=== PATIENT | male | born 1945 | race Caucasian/White ===

== ENCOUNTER 2025-02-05 05:09 | Observation (INO) | payer OTHER ==
[2025-02-05 05:41] LABS: Absolute Basophils 0.1 K/uL (0-0.5); Absolute Eosinophils 0.3 K/uL (0-0.5); Absolute Lymphocytes (CBC) 1.1 K/uL (0.7-4.9); Absolute Monocytes 0.6 K/uL (0.1-1.3); Absolute Neutrophil 5.2 K/uL (1.8-8.0); Basophils % 1.1 % (0-1.3); Hematocrit 43.1 % (39.6-49.0); Hemoglobin 14.9 g/dL (13.6-17.9); Lymphocytes % 14.8 % (15.3-44.8); MCH 33.1 pg (27.0-35.0); MCHC 34.6 g/dL (32.0-36.0); MCV 95.7 fL (80-100); MPV 8.3 fL (7.6-11.3); Monocytes % 8.1 % (3.3-12.3); Nucleated Red Blood Cells % 0.2 % (0-0); Platelets 421 thou/uL (152-406); Red Cell Distribution Width 13.5 % (12.1-15.2)
[2025-02-05 05:48] LABS: PT Prothrombin Time 13.5 SECONDS (10-13.0); PTT, Activated Partial Thromb 26.1 SECONDS (27.2-37.4); Protime INR 1.19
[2025-02-05 06:23] LABS: Albumin/Globulin Ratio 0.6 (1.1-1.8); Anion Gap 10.9 mEq/L (5.0-15.0); Bilirubin Total 0.6 mg/dL (0.2-1.0); Potassium 2.9 mEq/L (3.5-5.1)
[2025-02-05 06:28] LABS: Influenza A Ag Negative; Influenza B Ag Negative; SARS-CoV-2 Antigen Rapid Res Negative (Negative)
[2025-02-05] MEDS ORDERED: NA CHLORIDE 0.9% 1,000 ML ONE (07:04)
--- NOTE | 2025-02-05 07:57 | RAD REPORT ---
EXAMINATION: ONE VIEW CHEST XR CLINICAL INDICATION: Male, 79 years old.,weakness TECHNIQUE: Frontal chest projection is submitted. Examination is limited by patient positioning and t echnique. COMPARISON: 12/22/2016 FINDINGS: Developing patchy left perihilar and retrocardiac opacification. No pneumothorax or sizable effusion . The heart is normal in size. Mediastinal contours are unremarkable. IMPRESSION: Developing left airspace opacities as above concerning for pneumonia.
--- NOTE | 2025-02-05 08:38 | ER ---
Nurse's Notes [facility] Name: Miguel Pollock Age: 79 yrs Sex: Male : 1945 Arrival Date: 02/05/2025 Time: 05:09 Bed 8 Private MD: Diagnosis: Pneumonia, unspecified organism;Hypotension, unspecified Presentation: 02/05 05:15 Chief complaint: Patient states: WEAKNESS FOR A WEAK, DIZZINESS, LOWER BACK PAIN, AND ha1 HEADACHE. 05:15 Coronavirus screen: Client denies travel out of the [place] in the last 14 days. Ebola ha1 Screen: No symptoms or risks identified at this time. Initial Sepsis Screen: Does the patient meet any 2 criteria? No. Patient's initial sepsis screen is negative. Does the patient have a suspected source of infection? No. Patient's initial sepsis screen is negative. Risk Assessment: Do you want to hurt yourself or someone else? Patient reports no desire to harm self or others. 05:15 Method Of Arrival: Ambulatory ha1 05:15 Acuity: ANA 3 ha1 Triage Assessment: 05:15 General: Appears uncomfortable, Behavior is calm, cooperative. Pain: Complains of pain ha1 in HEADACHE AND LOWER BACK PAIN. Neuro: Level of Consciousness is awake, alert, obeys commands, Oriented to person, place, time, situation. Cardiovascular: Capillary refill < 3 seconds Patient's skin is warm and dry. Respiratory: Airway is patent Respiratory effort is even, unlabored, Respiratory pattern is regular, symmetrical. GI: No signs and/or symptoms were reported involving the gastrointestinal system. Derm: Skin is normal. Musculoskeletal: Circulation, motion, and sensation intact. Range of motion:. Historical: - Allergies: 05:15 No Known Allergies; ha1 - Home Meds: 05:15 lisinopril 20 mg Oral tab 1 tab once daily [Active]; ha1 - PMHx: 05:15 GERD; Hypertension; SKIN CANCER (2023); ha1 - PSHx: 05:15 SKIN REMOVAL (2023); ha1 - Immunization history:: Adult Immunizations up to date. - Infectious Disease History:: Denies. - Social history:: Smoking status: unknown. Screenin:43 [facility] ED Fall Risk Assessment (Adult) History of falling in the last 3 months, cp4 including since admission No falls in past 3 months (0 pts) Confusion or Disorientation No (0 pts) Intoxicated or Sedated No (0 pts) Impaired Gait No (0 pts) Mobility Assist Device Used No (0 pt) Altered Elimination No (0 pt) Score/Fall Risk Level 0 - 2 = Low Risk. Abuse screen: Denies threats or abuse. Denies injuries from another. Nutritional screening: No deficits noted. Tuberculosis screening: No symptoms or risk factors identified. Assessment: 05:43 VAN Scoring: Arm Drift: Patients demonstrates NO arm weakness. Patient is VAN Negative. cp4 Visual Disturbance: No visual disturbance noted. Aphasia: No aphasia noted. Neglect: No neglect noted. Tereza Swallow Protocol Exclusion Criteria: Brief Cognitive Screen What is your name? Normal, Where are you right now? Normal, What year is it? Normal. Oral Mechanism Examination Facial Symmetry: Normal, Motion: Normal, Lip Closure: Normal, Oral Mechanism Result: Normal. 3 oz Water Swallow Challenge: Pt able to drink all water without stopping, coughing, choking or throat clearing: Yes Result: PASS MD Notified: Tate Estevez MD. TNKase (Tenecteplase) Screening: Not Applicable. General: Appears in no apparent distress. uncomfortable, Behavior is calm, cooperative, appropriate for age. Pain: Denies pain. Neuro: Level of Consciousness is awake, alert, obeys commands, Oriented to person, place, time, situation. Cardiovascular: Patient's skin is warm and dry. Rhythm is sinus rhythm. Respiratory: Airway is patent Respiratory effort is even, unlabored. GI: No signs and/or symptoms were reported involving the gastrointestinal system. : No signs and/or symptoms were reported regarding the genitourinary system. EENT: No signs and/or symptoms were reported regarding the EENT system. Derm: No signs and/or symptoms reported regarding the dermatologic system. Musculoskeletal: No signs and/or symptoms reported regarding the musculoskeletal system. 07:15 General: Appears in no apparent distress. comfortable, well groomed, well developed, kc6 Behavior is calm, cooperative, appropriate for age. Neuro: Level of Consciousness is awake, alert, obeys commands, Oriented to person, place, time, situation, Appropriate for age. Cardiovascular: Capillary refill < 3 seconds. Respiratory: Airway is patent Trachea midline Respiratory effort is even, unlabored, Respiratory pattern is regular, symmetrical. GI: No signs and/or symptoms were reported involving the gastrointestinal system. : No signs and/or symptoms were reported regarding the genitourinary system. EENT: No signs and/or symptoms were reported regarding the EENT system. Derm: No signs and/or symptoms reported regarding the dermatologic system. Skin is intact, is healthy with good turgor, Skin is pink, warm \T\ dry. Musculoskeletal: No signs and/or symptoms reported regarding the musculoskeletal system. Circulation, motion, and sensation intact. Range of motion: intact in all extremities. 08:31 Reassessment: Patient appears in no apparent distress at this time. No changes from kc6 previously documented assessment. Patient and/or family updated on plan of care and expected duration. Pain level reassessed. Patient is alert, oriented x 3, equal unlabored respirations, skin warm/dry/pink. 09:56 Reassessment: Patient appears in no apparent distress at this time. Patient is alert, bp oriented x 3, equal unlabored respirations, skin warm/dry/pink. 10:41 Reassessment: Patient appears in no apparent distress at this time. No changes from kc6 previously documented assessment. Patient and/or family updated on plan of care and expected duration. Pain level reassessed. Patient is alert, oriented x 3, equal unlabored respirations, skin warm/dry/pink. 11:10 Reassessment: REPORT FAXED FOR RM 407. bp Vital Signs: 05:15 BP 109 / 94; Pulse 70; Resp 18 S; Temp 97.9(T); Pulse Ox 98% on R/A; Weight 70.31 kg; ha1 Height 5 ft. 8 in. ; 06:39 BP 80 / 62; Pulse 70; Resp 16; Pulse Ox 96% ; jj7 06:59 BP 92 / 72; Pulse 74; Resp 18; Pulse Ox 98% ; cp4 08:30 BP 105 / 69; Pulse 68; Resp 16 S; Pulse Ox 100% on R/A; kc6 09:55 BP 97 / 71; Pulse 72; Resp 19; Pulse Ox 96% ; bp 10:41 BP 103 / 72; Pulse 70; Resp 16 S; Pulse Ox 96% on R/A; kc6 05:15 Body Mass Index 23.57 (70.31 kg, 172.72 cm) ha1 NIH Stroke Scale Scores: 05:43 NIHSS Score: 0 4 ED Course: 05:12 Patient arrived in ED. jj6 05:15 Inserted saline lock: 22 gauge in left antecubital area, using aseptic technique. Blood ha1 collected. Flushed with 10 mL NS. 05:24 Tate Estevez MD is Attending Physician. sp3 05:34 Ileana Arcos is Primary Nurse. cp4 05:34 Initial lab(s) drawn, by me, sent to lab. EKG done, by ED staff, reviewed by Tate Estevez MD. 05:37 Triage completed. ha1 05:40 First set of blood cultures drawn Second set of blood cultures drawn by me, COVID swab cp4 sent to lab. Flu and/or RSV swab sent to lab. 05:43 No provider procedures requiring assistance completed. cp4 05:43 Bed in low position. Call light in reach. Side rails up X2. cp4 06:18 Chest Single View XRAY In Process Unspecified. EDMS 07:05 Patient has correct armband on for positive identification. Bed in low position. Call kc6 light in reach. Side rails up X2. Report received from Yarelis Arcos RN. quality assurance monitor final on. Pulse ox on. NIBP on. Door closed. Noise minimized. Lights dimmed. Warm blanket given. Pillow given. Verbal reassurance given. 07:06 Patient maintains SpO2 saturation greater than 95% on room air. kc6 07:07 Arm band placed on. kc6 07:15 Attending Physician role handed off by Tate Estevez MD rn 07:15 Jeremy Gray MD is Attending Physician. rn 08:03 CT Head Brain wo Cont In Process Unspecified. EDMS 08:31 Urine collected: clean catch specimen, clear. kc6 08:37 Codey Gray MD is Hospitalizing Provider. rn 10:41 Patient admitted, IV remains in place. kc6 11:27 Provided Education on: NA. bp Administered Medications: 07:08 Drug: NS 0.9% IV 1000 ml IV at 1 bolus Per protocol; to be given as a bolus over 60 bp minutes Route: IV; Rate: 1 bolus; Site: left antecubital; 10:40 Follow up: Response: No adverse reaction; IV Status: Completed infusion; IV Intake: kc6 1000ml 08:52 Drug: Rocephin IV 1 grams IV at calculated rate once; Given slow IV push per pharmacy bp instructions Route: IV; Rate: calculated rate; Site: left antecubital; 10:40 Follow up: Response: No adverse reaction; IV Status: Completed infusion; IV Intake: [id number] 08:52 Drug: Zithromax IVPB 500 mg IVPB once over 1 hrs; mix in 250 mL NS Route: IVPB; Infused bp Over: 1 hrs; Site: left antecubital; 10:40 Follow up: Response: No adverse reaction; IV Status: Completed infusion; IV Intake: kc6 250ml Medication: 05:43 VIS not applicable for this client. cp4 Intake: 10:40 IV: 1000ml; Total: 1000ml. kc6 10:40 IV: 10ml; Total: 1010ml. kc6 10:40 IV: 250ml; Total: 1260ml. kc6 Outcome: 08:37 Decision to Hospitalize by Provider. rn 10:41 Admitted to ER Hold. Please see [facility] for further documentation. 6 10:41 Condition: good 10:41 Instructed on the need for admit, 12:18 Patient left the ED. bp NIH Stroke Scale - NIH Stroke Score Date: 02/05/2025 Time: 05:43 Total Score = 0 10. Dysarthria (speech clarity - read or repeat words) - 0(Normal) 11. Extinction and Inattention (visual/tactile/auditory/spatial/personal) - 0(No abnormality) 1a. Level of Consciousness (LOC) - 0(Alert) 1b. Level of Consciousness (LOC) (Month \T\ Age) - 0(Both) 1c. LOC Commands (Open \T\ Closes Eyes/Assembler Brazer) - 0(Both) 2. Best Gaze (Lateral Gaze Paresis) - 0(Normal) 3. Visual Field Loss - 0(No visual loss) 4. Facial Palsy - 0(Normal) 5a. Left Arm: Motor (10-second hold) - 0(No drift) 5b. Right Arm: Motor (10-second hold) - 0(No drift) 6a. Left Leg: Motor (5-second hold - always test supine) - 0(No drift) 6b. Right Leg: Motor (5-second hold - always test supine) - 0(No drift) 7. Limb Ataxia (finger/nose \T\ heel/tee - test with eyes open) - 0(Absent) 8. Sensory Loss (pinprick arms/legs/face) - 0(Normal) 9. Best Language: Aphasia (description/naming/reading) - 0(No aphasia) Initials: cp4 Signatures: Dispatcher [employer] EDJeremy Aldridge MD MD rn Peltier, Brian RN RN bp Tate Estevez MD MD sp3 Nicolasa Dixon jj6 Nandini Morrison RN RN ha1 Kelli Rios RN RN kc6 Chris Dixon RN RN jj7 Ileana Arcos cp4
--- NOTE | 2025-02-05 08:39 | EDPHYS ---
Physician Documentation [facility] Name: Miguel Pollock Age: 79 yrs Sex: Male : 1945 Arrival Date: 02/05/2025 Time: 05:09 Bed 8 Private MD: ED Physician Jeremy Gray HPI: 02/05 05:53 This 79 yrs old Male presents to ER via Ambulatory with complaints of Dizziness, sp3 Weakness, Flu Symptoms, Doesn't Feel Right. 05:53 79-year-old male with history of hypertension, prior skin cancer, GERD presents to the 3 ED with a 1 week history of generalized weakness, subjective fever, chills, sweats, loss of taste, and "not feeling right". She denies any chest pain, shortness of breath, known sick contacts, travel history, prolonged immobilization, abdominal pain, vomiting or diarrhea, or any other signs or symptoms on ROS at this time.. Historical: - Allergies: 05:15 No Known Allergies; ha1 - Home Meds: 05:15 lisinopril 20 mg Oral tab 1 tab once daily [Active]; ha1 - PMHx: 05:15 GERD; Hypertension; SKIN CANCER (2023); ha1 - PSHx: 05:15 SKIN REMOVAL (2023); ha1 - Immunization history:: Adult Immunizations up to date. - Infectious Disease History:: Denies. - Social history:: Smoking status: unknown. ROS: 05:57 Eyes: Negative for injury, pain, redness, and discharge, Neck: Negative for injury, sp3 pain, and swelling, Cardiovascular: Negative for chest pain, palpitations, and edema, Respiratory: Negative for shortness of breath, cough, wheezing, and pleuritic chest pain, Abdomen/GI: Negative for abdominal pain, nausea, vomiting, diarrhea, and constipation, Back: Negative for injury and pain, MS/Extremity: Negative for injury and deformity, Skin: Negative for injury, rash, and discoloration, Neuro: Negative for headache, weakness, numbness, tingling, and seizure, Psych: Negative for depression, anxiety, suicide ideation, homicidal ideation, and hallucinations, Allergy/Immunology: Negative for hives, rash, and allergies, 05:57 All other systems are negative, Exam: 05:58 Constitutional: This is a well developed, well nourished patient who is awake, alert, sp3 and in no acute distress. Head/Face: Normocephalic, atraumatic. Eyes: Pupils equal round and reactive to light, extra-ocular motions intact. Lids and lashes normal. Conjunctiva and sclera are non-icteric and not injected. Cornea within normal limits. Periorbital areas with no swelling, redness, or edema. ENT: Nares patent. No nasal discharge, no septal abnormalities noted. External auditory canals are clear. Oropharynx with no redness, swelling, or masses, exudates, or evidence of obstruction, uvula midline. Mucous membranes moist. Neck: Trachea midline, no thyromegaly or masses palpated, and no cervical lymphadenopathy. Supple, full range of motion without nuchal rigidity, or vertebral point tenderness. No Meningismus. Chest/axilla: Normal chest wall appearance and motion. Nontender with no deformity. No lesions are appreciated. Cardiovascular: Regular rate and rhythm with a normal S1 and S2. No gallops, murmurs, or rubs. Normal PMI, no JVD. No pulse deficits. Respiratory: Lungs have equal breath sounds bilaterally, clear to auscultation and percussion. No rales, rhonchi or wheezes noted. No increased work of breathing, no retractions or nasal flaring. Abdomen/GI: Soft, non-tender, with normal bowel sounds. No distension or tympany. No guarding or rebound. No evidence of tenderness throughout. Back: No spinal tenderness. No costovertebral tenderness. Full range of motion. Skin: Warm, dry with normal turgor. Normal color with no rashes, no lesions, and no evidence of cellulitis. MS/ Extremity: Pulses equal, no cyanosis. Neurovascular intact. Full, normal range of motion. Neuro: Awake and alert, GCS 15, oriented to person, place, time, and situation. Cranial nerves II-XII grossly intact. Motor strength 5/5 in all extremities. Sensory grossly intact. Cerebellar exam normal. Normal gait. Psych: Awake, alert, with orientation to person, place and time. Behavior, mood, and affect are within normal limits. 05:58 Abdomen/GI: 06:01 ECG was reviewed by the Attending Physician. EKG demonstrates normal sinus rhythm at 75 sp3 bpm with normal intervals, normal QRS, normal axis, normal ST/T-segment's without evidence of acute ischemia. Vital Signs: 05:15 BP 109 / 94; Pulse 70; Resp 18 S; Temp 97.9(T); Pulse Ox 98% on R/A; Weight 70.31 kg; ha1 Height 5 ft. 8 in. ; 06:39 BP 80 / 62; Pulse 70; Resp 16; Pulse Ox 96% ; jj7 06:59 BP 92 / 72; Pulse 74; Resp 18; Pulse Ox 98% ; cp4 08:30 BP 105 / 69; Pulse 68; Resp 16 S; Pulse Ox 100% on R/A; kc6 09:55 BP 97 / 71; Pulse 72; Resp 19; Pulse Ox 96% ; bp 10:41 BP 103 / 72; Pulse 70; Resp 16 S; Pulse Ox 96% on R/A; kc6 05:15 Body Mass Index 23.57 (70.31 kg, 172.72 cm) ha1 NIH Stroke Scale Scores: 05:43 NIHSS Score: 0 cp4 MDM: 05:24 Medical Screening Exam initiated sp3 05:59 Data reviewed: vital signs, nurses notes, old medical records, lab test result(s), EKG, sp3 radiologic studies. ED course: 79-year-old male with PMH above with generalized weakness and vague symptoms. Differential diagnosis includes viral illness, COVID-19, influenza, pneumonia, bronchitis, electrolyte abnormality, UTI, among others. I am not highly suspicious of acute coronary syndrome, PE, sepsis, shock or any other critical process at this time. Workup will include EKG, chest x-ray, UA, general labs and swabs with disposition pending workup and patient course.. 08:36 Differential diagnosis: hypovolemia, idiopathic dizziness, near-syncope, vertigo, rn pneumonia, dehydration, COVID, viral syndrome. Consideration of Admission/Observation Patient was admitted/placed on observation. Escalation of care including admission/observation considered. Care significantly affected by the following chronic conditions: Hypertension. Counseling: I had a detailed discussion with the patient and/or guardian regarding the historical points, exam findings, and any diagnostic results supporting the discharge/admit diagnosis, lab results, radiology results, the need for further work-up and treatment in the hospital. ED course: Will admit patient for pneumonia given hypotension with systolic in the 80s with dizziness and malaise. Normal lactic acid.. 02/05 05:26 Order name: Blood Culture Adult (2) 3 02/05 05:26 Order name: CBC with Diff; Complete Time: 06:52 3 02/05 05:26 Order name: CMP; Complete Time: 06:52 3 02/05 05:26 Order name: Lactate w/ 2H reflex if indic.; Complete Time: 06:52 3 02/05 05:26 Order name: Protime (+inr); Complete Time: 06:52 3 02/05 05:26 Order name: Ptt, Activated; Complete Time: 06:52 02/05 05:26 Order name: Urinalysis w/ reflexes 3 02/05 05:26 Order name: Troponin High Sensitivity; Complete Time: 06:52 3 02/05 05:26 Order name: COVID-19 Ag + Flu A+B Ag; Complete Time: 06:52 3 02/05 10:23 Order name: Basic Metabolic Panel EDMS 02/05 10:23 Order name: Basic Metabolic Panel EDMS 02/05 10:23 Order name: Basic Metabolic Panel EDMS 02/05 10:23 Order name: Basic Metabolic Panel EDMS 02/05 10:23 Order name: Basic Metabolic Panel EDMS 02/05 10:23 Order name: Basic Metabolic Panel EDMS 02/05 10:23 Order name: CBC with Automated Diff EDMS 02/05 10:23 Order name: CBC with Automated Diff EDMS 02/05 10:23 Order name: CBC with Automated Diff EDMS 02/05 10:23 Order name: CBC with Automated Diff EDMS 02/05 10:23 Order name: CBC with Automated Diff EDMS 02/05 10:23 Order name: CBC with Automated Diff EDMS 02/05 10:23 Order name: Magnesium EDMS 02/05 10:23 Order name: Magnesium EDMS 02/05 10:23 Order name: Magnesium EDMS 02/05 10:23 Order name: Magnesium EDMS 02/05 10:23 Order name: Magnesium EDMS 02/05 10:23 Order name: Magnesium EDMS 02/05 10:23 Order name: Phosphorus EDMS 02/05 10:23 Order name: Phosphorus EDMS 02/05 10:23 Order name: Phosphorus EDMS 02/05 10:23 Order name: Phosphorus EDMS 02/05 10:23 Order name: Phosphorus EDMS 04/13 10:23 Order name: Phosphorus EDMS 02/05 10:23 Order name: Urinalysis w/ reflexes EDMS 02/05 05:26 Order name: Chest Single View XRAY; Complete Time: 08:30 sp3 02/05 07:28 Order name: CT Head Brain wo Cont; Complete Time: 09:02 rn 02/05 05:26 Order name: Cardiac monitoring; Complete Time: 05:32 sp3 02/05 05:26 Order name: EKG - Nurse/Tech; Complete Time: 05:32 sp3 02/05 05:26 Order name: IV Saline Lock - Large Bore; Complete Time: 05:32 sp3 02/05 05:26 Order name: Labs collected and sent; Complete Time: 05:34 sp3 02/05 05:26 Order name: O2 Per Protocol; Complete Time: 05:32 sp3 02/05 05:26 Order name: O2 Sat Monitoring; Complete Time: 05:32 sp3 02/05 05:26 Order name: Vital Signs; Complete Time: 05:32 sp3 Administered Medications: 07:08 Drug: NS 0.9% IV 1000 ml IV at 1 bolus Per protocol; to be given as a bolus over 60 bp minutes Route: IV; Rate: 1 bolus; Site: left antecubital; 10:40 Follow up: Response: No adverse reaction; IV Status: Completed infusion; IV Intake: kc6 1000ml 08:52 Drug: Rocephin IV 1 grams IV at calculated rate once; Given slow IV push per pharmacy bp instructions Route: IV; Rate: calculated rate; Site: left antecubital; 10:40 Follow up: Response: No adverse reaction; IV Status: Completed infusion; IV Intake: [id number] 08:52 Drug: Zithromax IVPB 500 mg IVPB once over 1 hrs; mix in 250 mL NS Route: IVPB; Infused bp Over: 1 hrs; Site: left antecubital; 10:40 Follow up: Response: No adverse reaction; IV Status: Completed infusion; IV Intake: kc6 250ml Disposition Summary: 02/05/25 08:37 Hospitalization Ordered Notes: Hospitalization Status: Inpatient Admission rn Provider: Codey Gray [facility]n [facility] Condition: Stable rn Problem: new rn Symptoms: have improved rn Bed/Room Type: Standard rn Room Assignment: 407(02/05/25 12:01) aa5 Diagnosis - Pneumonia, unspecified organism rn - Hypotension, unspecified rn Forms: - Medication Reconciliation Form rn - SBAR form rn - Leadership Thank You Letter rn NIH Stroke Scale - NIH Stroke Score Date: 02/05/2025 Time: 05:43 Total Score = 0 10. Dysarthria (speech clarity - read or repeat words) - 0(Normal) 11. Extinction and Inattention (visual/tactile/auditory/spatial/personal) - 0(No abnormality) 1a. Level of Consciousness (LOC) - 0(Alert) 1b. Level of Consciousness (LOC) (Month \\T\\ Age) - 0(Both) 1c. LOC Commands (Open \\T\\ Closes Eyes/Wire Drawing Setter) - 0(Both) 2. Best Gaze (Lateral Gaze Paresis) - 0(Normal) 3. Visual Field Loss - 0(No visual loss) 4. Facial Palsy - 0(Normal) 5a. Left Arm: Motor (10-second hold) - 0(No drift) 5b. Right Arm: Motor (10-second hold) - 0(No drift) 6a. Left Leg: Motor (5-second hold - always test supine) - 0(No drift) 6b. Right Leg: Motor (5-second hold - always test supine) - 0(No drift) 7. Limb Ataxia (finger/nose \\T\\ heel/tee - test with eyes open) - 0(Absent) 8. Sensory Loss (pinprick arms/legs/face) - 0(Normal) 9. Best Language: Aphasia (description/naming/reading) - 0(No aphasia) Initials: cp4 Signatures: Dispatcher [employer] EDMS Jeremy Gray MD MD rn Calderon, Audri, RN RN aa5 Shiva Davidson RN RN bp Tate Estevez MD MD sp3 Nandini Morrison RN RN ha1 Kelli Rios RN kc6 Corrections: (The following items were deleted from the chart) 05:27 05:27 BLOOD CULTURE*+BA.LAB.BRZ ordered. EDMS EDMS 05:27 05:27 CBC+H.LAB.BRZ ordered. EDMS EDMS 05:27 05:27 COMPREHENSIVE METABOLIC PANEL+C.LAB.BRZ ordered. EDMS EDMS 05:27 05:27 LACTATE+C.LAB.BRZ ordered. EDMS EDMS 05:27 05:27 PROTIME (+INR)+COAG.LAB.BRZ ordered. EDMS EDMS 05:27 05:27 PTT, ACTIVATED+COAG.LAB.BRZ ordered. EDMS EDMS 05:27 05:27 Urinalysis+U.LAB.BRZ ordered. EDMS EDMS 05:27 05:27 Troponin High Sensitivity+C.LAB.BRZ ordered. EDMS EDMS 05:27 05:27 COVID-19 Ag + Flu A+B Ag+I.LAB.BRZ ordered. EDMS EDMS 05:27 05:27 Chest Single View+RAD.RAD.BRZ ordered. EDND EDMS 05:58 05:57 Constitutional: Negative for fever, chills, and weight loss, Eyes: sp3 Negative for injury, pain, redness, and discharge, Neck: Negative for injury, pain, and swelling, Cardiovascular: Negative for chest pain, palpitations, and edema, Respiratory: Negative for shortness of breath, cough, wheezing, and pleuritic chest pain, Back: Negative for injury and pain, MS/Extremity: Negative for injury and deformity, Skin: Negative for injury, rash, and discoloration, Neuro: Negative for headache, weakness, numbness, tingling, and seizure, Psych: Negative for depression, anxiety, suicide ideation, homicidal ideation, and hallucinations, Allergy/Immunology: Negative for hives, rash, and allergies, sp3 05:59 05:58 Constitutional: This is a well developed, well nourished patient who is sp3 awake, alert, and in no acute distress. Head/Face: Normocephalic, atraumatic. Eyes: Pupils equal round and reactive to light, extra-ocular motions intact. Lids and lashes normal. Conjunctiva and sclera are non-icteric and not injected. Cornea within normal limits. Periorbital areas with no swelling, redness, or edema. Neck: Trachea midline, no thyromegaly or masses palpated, and no cervical lymphadenopathy. Supple, full range of motion without nuchal rigidity, or vertebral point tenderness. No Meningismus. Chest/axilla: Normal chest wall appearance and motion. Nontender with no deformity. No lesions are appreciated. Cardiovascular: Regular rate and rhythm with a normal S1 and S2. No gallops, murmurs, or rubs. Normal PMI, no JVD. No pulse deficits. Respiratory: Lungs have equal breath sounds bilaterally, clear to auscultation and percussion. No rales, rhonchi or wheezes noted. No increased work of breathing, no retractions or nasal flaring. Back: No spinal tenderness. No costovertebral tenderness. Full range of motion. Skin: Warm, dry with normal turgor. Normal color with no rashes, no lesions, and no evidence of cellulitis. MS/ Extremity: Pulses equal, no cyanosis. Neurovascular intact. Full, normal range of motion. Neuro: Awake and alert, GCS 15, oriented to person, place, time, and situation. Cranial nerves II-XII grossly intact. Motor strength 5/5 in all extremities. Sensory grossly intact. Cerebellar exam normal. Normal gait. sp3 12:01 08:37 rn aa5
[2025-02-05] MEDS ORDERED: NA CHLORIDE 0.9% 250 ML ONE (08:44)
[2025-02-05] MEDS ORDERED: AZITHROMYCIN 500 MG INJ IVPB ONE (08:44)
[2025-02-05] MEDS ORDERED: CEFTRIAXONE 1000 MG/VIAL ONE (08:44)
--- NOTE | 2025-02-05 08:51 | RAD REPORT ---
EXAM: CT Head Brain Wo Cont HISTORY: Dizziness;Confused COMPARISON: None available TECHNIQUE: Multiple contiguous axial images were obtained for a CT of the brain without contrast. Sag ittal and coronal reformats were performed. One or more of the following dose reduction techniques were used: Automated exposure control, adjus tment of the mA and kV according to patient size, and iterative reconstruction. Unless otherwise specified, incidental findings do not require dedicated imaging follow-up. FINDINGS: No evidence of hydrocephalus, intracranial hemorrhage, or extra-axial fluid collection. The brain is normal in morphology. The calvarium is intact. The visualized paranasal sinuses and mastoid air cells are essentially clear . IMPRESSION: No evidence of acute intracranial abnormality.
[2025-02-05 09:01] LABS: Specific Gravity 1.025 (1.005-1.030); Sqamous Epithelial <5 /HPF (None Seen); Urine Bacteria None Seen /HPF (<20); Urine Bilirubin NEGATIVE (Negative); Urine Blood Negative (Negative); Urine Clarity Turbid (Clear); Urine Color Yellow (Yellow); Urine Culture Reflex Order NOT NEEDED; Urine Glucose NEGATIVE (Negative); Urine Ketones NEGATIVE (Negative); Urine Microscopic Reflex YN ORDER UMIC; Urine Mucus Slight /HPF (None Seen); Urine Nitrite NEGATIVE (Negative); Urine Protein TRACE (Negative); Urine RBC <5 /HPF (None Seen); Urine Urobilinogen Normal (Normal); Urine WBC <5 /HPF (<5); Urine Yeast (Budding) Trace /HPF (None Seen); Urine pH 5.5 (5.0-7.0)
[2025-02-05] MEDS ORDERED: ACETAMINOPHEN 325 MG TABLET PO PRN (10:15)
[2025-02-05] MEDS ORDERED: ALBUTEROL 2.5 MG/3 ML NEB SOL NEB PRN (10:15)
--- NOTE | 2025-02-05 10:46 | P.HP ---
Certification for Inpatient Patient admitted to: Observation With expected LOS: <2 Midnights Patient will require the following post-hospital care: None Practitioner: I am a practitioner with admitting privileges, knowledge of patient current condition, hospital course, and medical plan of care. Services: Services provided to patient in accordance with Admission requirements found in Title 42 Section 412.3 of the Code of Federal Regulations Patient History Date of Service: 02/05/25 Reason for admission: Acute community acquired left sided PNA History of Present Illness: Miguel Pollock is a 79 year old with pmhx GERD, Hypertension, hyperlipidemia, melanoma (2023), degenerative disc disease, and arthritis who presented to the ED with generalized weakness, fever/chills, dizziness, and flu like symptoms for a week and a half. He reports symptoms started with generalized weakness, chills causing shivering, and decreased appetite. He denies chest pain, SOB, and abdominal pain. Laboratory evaluation significant for sodium 133, potassium 2.9, BUN/creatinine 56/1.93, GFR 35, serum glucose 108, AST 49. Chest xray reports "Developing left airspace opacities as above concerning for pneumonia." Head CT reports "No evidence of acute intracranial abnormality." Miguel will be admitted to hospitalist service for further treatment of Acute community acquired left sided PNA. Allergies No Known Allergies Allergy (Verified 12/22/16 18:02) Home Medications: Loratadine [Claritin*] 10 mg PO DAILY 12/22/16 ALPRAZolam [Xanax] 0.25 mg PO BID PRN #15 tab 12/23/16 Aspirin [Aspirin EC 81 MG] 81 mg PO DAILY #90 tablet. 12/23/16 Pantoprazole [Protonix Tab*] 40 mg PO DAILYAC #30 tab 12/23/16 lisinopriL [Prinivil*] 10 mg PO DAILY #30 tab 12/23/16 - Past Medical/Surgical History Diabetic: No -: Hypertension -: Hyperlipidemia -: Melanoma -: arthritis -: degenerative disc disease -: Removal of melanoma to the abdomen and cheek Psychosocial/ Personal History: He is single. He has twice . He has 3 children. 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 - Family History Father -: Cancer (Lung cancer) Brother -: Heart disease - Social History Alcohol use: No CD- Drugs: No Caffeine use: No Review of Systems Other: per HPI Physical Examination - Physical Exam General: Alert, In no apparent distress, Oriented x3 HEENT: Atraumatic, Normocephalic Neck: Supple, 2+ carotid pulse no bruit Respiratory: Clear to auscultation bilaterally, Normal air movement Cardiovascular: Normal pulses, Regular rate/rhythm, Normal S1 S2 Capillary refill: <2 Seconds Gastrointestinal: Normal bowel sounds, Soft and benign Musculoskeletal: No clubbing Integumentary: No rashes Neurological: Normal speech, Normal tone - Studies Laboratory Data (last 24 hrs) 02/05/25 02/05/25 02/05/25 05:32 05:32 05:32 WBC 7.20 Hgb 14.9 Hct 43.1 Plt Count 421 H PT 13.5 H INR 1.19 APTT 26.1 L Sodium 133 L Potassium 2.9 L BUN 56 H Creatinine 1.93 H Glucose 108 H Total Bilirubin 0.6 AST 49 H ALT 49 Alkaline Phosphatase 77 Assessment and Plan - Plan Assessment and plan Acute community-acquired left-sided pneumonia -Chest xray reports "Developing left airspace opacities as above concerning for pneumonia." -Flu/COVID negative -WBC and lactic WNL -Rocephin and azithromycin -Duonebs PRN -Gentle IV fluid -currently on Room air -monitor blood pressure -Subjective fever, monitor -Follow blood cultures Decreased PO intake Hypokalemia Hyponatremia -potassium replaced -Continue to monitor SANDRA 2/2 dehydration - gentle IVF -monitor in AM labs -hold nephrotoxic medications GERD HTN/HLD Melanoma(2023) Degenerative disc disease Arthritis -Continue home medications as appropriate DVT ppx heparin Full code LOS 24 hour OBS Discharge Plan: Home Plan to discharge in: 24 Hours - Advance Directives Does patient have a Living Will: No Does patient have a Durable POA for Healthcare: No
[2025-02-05] MEDS: NA CHLORIDE 0.9% 1,000 ML IV SCH (11:00)
[2025-02-05] MEDS: POTASSIUM CL 40 MEQ in NA CHLORIDE 0.9% 500 ML IV SCH (11:00)
[2025-02-05 12:29] VITALS: O2SAT 96
[2025-02-05 12:44] VITALS: BMI 22.6
[2025-02-05] MEDS: IPRATROPIUM BROM 0.5MG/2.5ML NEB SCH (13:33)
[2025-02-05] MEDS: HEPARIN 5000 UNIT/ML 1 ML VIAL SQ SCH (16:33)
[2025-02-05] MEDS: ATORVASTATIN 10 MG TAB PO SCH (20:12)
[2025-02-05] MEDS: POTASSIUM CL SA 10 MEQ TAB PO SCH (20:12)
[2025-02-06 06:00] LABS: Absolute Basophils 0.1 K/uL (0-0.5); Absolute Eosinophils 0.2 K/uL (0-0.5); Absolute Lymphocytes (CBC) 0.8 K/uL (0.7-4.9); Absolute Monocytes 0.4 K/uL (0.1-1.3); Absolute Neutrophil 2.6 K/uL (1.8-8.0); Basophils % 1.3 % (0-1.3); Hematocrit 32.9 % (39.6-49.0); Hemoglobin 11.4 g/dL (13.6-17.9); Lymphocytes % 19.7 % (15.3-44.8); MCH 33.3 pg (27.0-35.0); MCHC 34.6 g/dL (32.0-36.0); MCV 96.1 fL (80-100); MPV 8.4 fL (7.6-11.3); Monocytes % 10.4 % (3.3-12.3); Neutrophils % 63.6 % (41.7-73.7); Nucleated Red Blood Cells % 0.1 % (0-0); Platelets 339 thou/uL (152-406); RBC Red Blood Cell Count 3.43 M/uL (4.33-5.43); Red Cell Distribution Width 13.6 % (12.1-15.2)
[2025-02-06 06:10] LABS: Anion Gap 8.8 mEq/L (5.0-15.0); Magnesium 2.2 mg/dL (1.6-2.4); Phosphorus 2.3 mg/dL (2.5-4.9); Potassium 3.8 mEq/L (3.5-5.1)
[2025-02-06] MEDS: POTASS/SODIUM PHOSPHATE 1 PKT POWD.PACK PO SCH (06:44)
[2025-02-06] MEDS: AZITHROMYCIN IV 500 MG in NA CHLORIDE 0.9% 250 ML IVPB SCH (08:30)
[2025-02-06] MEDS: CEFTRIAXONE 1,000 MG in NA CHLORIDE 0.9% 50 ML IVPB SCH (08:32)
[2025-02-06] MEDS: HOME MED 1 EA UNK (Omeprazole [Omeprazole] 20 MG Capsule.Dr) PO SCH (08:33)
--- NOTE | 2025-02-06 10:51 | EKG ---
Test Date: 2025-02-05 Test Time: 05:29:49 Inlayer: GREYSON MEASUREMENT RESULTS: Intervals: Rate: 74 AK: 186 QRSD: 84 QT: 440 QTc: 488 Guthrie: P: 71 AK: 186 QRS: 66 T: 70 INTERPRETIVE STATEMENTS: Normal sinus rhythm Prolonged QT Abnormal ECG Compared to ECG 12/23/2016 06:26:20 Prolonged QT interval now present Sinus arrhythmia no longer present Electronically Signed On 02-06-25 10:47:59 CDT by Stephen Campos
[2025-02-06 12:06] VITALS: BP 110/68; TEMP 97.5
--- NOTE | 2025-02-06 13:57 | P.DS ---
Admission Date: 02/05/25 Discharge Date: 02/06/25 Disposition: ROUTINE DISCHARGE Discharge Condition: GOOD Reason for Admission: Acute community acquired left sided PNA Brief History of Present Illness: Diagnosis Acute community-acquired left-sided pneumonia Decreased PO intake Hypokalemia Hyponatremia SANDRA 2/2 dehydration GERD HTN/HLD Melanoma(2023) Degenerative disc disease Arthritis HPI 02/05/2025 Miguel Pollock is a 79 year old with pmhx GERD, Hypertension, hyperlipidemia, melanoma (2023), degenerative disc disease, and arthritis who presented to the ED with generalized weakness, fever/chills, dizziness, and flu like symptoms for a week and a half. He reports symptoms started with generalized weakness, chills causing shivering, and decreased appetite. He denies chest pain, SOB, and abdominal pain. Laboratory evaluation significant for sodium 133, potassium 2.9, BUN/creatinine 56/1.93, GFR 35, serum glucose 108, AST 49. Chest xray reports "Developing left airspace opacities as above concerning for pneumonia." Head CT reports "No evidence of acute intracranial abnormality." Miguel will be admitted to hospitalist service for further treatment of Acute community acquired left sided PNA. Hospital Course: Physical Exam General: Alert, In no apparent distress, Oriented x3 HEENT: Atraumatic, Normocephalic Neck: Supple, 2+ carotid pulse no bruit Respiratory: Clear to auscultation bilaterally, Normal air movement Cardiovascular: Normal pulses, Regular rate/rhythm, Normal S1 S2 Capillary refill: <2 Seconds Gastrointestinal: Normal bowel sounds, Soft and benign Musculoskeletal: No clubbing Integumentary: No rashes Neurological: Normal speech, Normal tone Vital Signs/Physical Exam: Temp Pulse Resp BP Pulse Ox 97.5 F 81 13 110/68 94 02/06/25 12:00 02/06/25 12:00 02/06/25 12:00 02/06/25 12:00 02/06/25 12:00 Laboratory Data at Discharge: WBC 4.10 thou/uL (4.3-10.9) L 02/06/25 05:23 Hgb 11.4 g/dL (13.6-17.9) L D 02/06/25 05:23 Hct 32.9 % (39.6-49.0) L 02/06/25 05:23 Plt Count 339 thou/uL (152-406) 02/06/25 05:23 PT 13.5 SECONDS (10-13.0) H 02/05/25 05:32 INR 1.19 02/05/25 05:32 APTT 26.1 SECONDS (27.2-37.4) L 02/05/25 05:32 Sodium 140 mEq/L (136-145) D 02/06/25 05:23 Potassium 3.8 mEq/L (3.5-5.1) D 02/06/25 05:23 BUN 33 mg/dL (7-18) H 02/06/25 05:23 Creatinine 1.25 mg/dL (0.70-1.30) 02/06/25 05:23 Glucose 106 mg/dL (74-106) 02/06/25 05:23 Phosphorus 2.3 mg/dL (2.5-4.9) L 02/06/25 05:23 Magnesium 2.2 mg/dL (1.6-2.4) 02/06/25 05:23 Total Bilirubin 0.6 mg/dL (0.2-1.0) 02/05/25 05:32 AST 49 U/L (15-37) H 02/05/25 05:32 ALT 49 U/L (16-61) 02/05/25 05:32 Alkaline Phosphatase 77 U/L (45-117) 02/05/25 05:32 Home Medications: Atorvastatin Calcium 10 mg PO BEDTIME 02/05/25 Omeprazole 20 mg PO DAILY 02/05/25 hydroCHLOROthiazide [Hydrochlorothiazide] 12.5 mg PO DAILY 02/05/25 lisinopriL [Prinivil*] 20 mg PO DAILY WITH BREAKFAST 02/05/25 Cefuroxime [Ceftin] 500 mg PO BID 5 Days #20 tab 02/06/25 New Medications: Cefuroxime [Ceftin] 500 mg PO BID 5 Days #20 tab Physician Discharge Instructions: 1. Please call and schedule a follow-up appointment with your PCP in 3-5 days - Please follow-up with your PCP for medication refills/adjustments 2. Continue regular diet, stay hydrated 3. activity restrictions, refrain from going to work until 02/09 -Continue using incentive spirometer 4. Return to the ED if symptoms worsen New medications Ceftin 500 mg twice daily x 5 days Diet: Regular Activity: Ad patsy [facility] [Primary Care Provider] -
[2025-02-06] MEDS ORDERED: PNEUMOCOCCAL VACCINE 0.5 ML IMVAC ONE (14:00)
== END 2025-02-06 15:54 | disposition home or self-care (01) ==
LOC: ER 05:09 → ERHOLD 10:15 → 4TH 12:04
PROVIDERS: ADMIT Hospitalist; ATTEND Hospitalist
DX: K21.9 Gastro-esophageal reflux disease without esophagitis (principal); I95.9 Hypotension, unspecified; I10 Essential (primary) hypertension; R53.1 Weakness; R50.9 Fever, unspecified; E87.6 Hypokalemia; E87.1 Hypo-osmolality and hyponatremia; N17.9 Acute kidney failure, unspecified; E86.0 Dehydration; M19.90 Unspecified osteoarthritis, unspecified site; Z11.52 Encounter for screening for COVID-19; J18.9 Pneumonia, unspecified organism
CPT/HCPCS: 36415; 70450; 71045; 80048; 80053; 81001; 83605; 83735; 84100; 84484; 85025; 85610; 85730; 87040; 87428; 93005; 94010; 94640; 96361; 96365; 96366; 96368; 99285; G0378; J0696; J1644; J3480; J7030; J7040; J7050; J7644